=== PATIENT | male | born 1995 ===

== ENCOUNTER 2019-12-23 16:26 | Emergency (ER) | payer MEDICAID ==
[~2019-12-23] VITALS: Ht 167.6 cm; Wt 75.0 kg
[2019-12-23 16:30] VITALS: BP 131/69
[2019-12-23] MEDS ORDERED: LIDOCAINE-MPF 1%, 5ML ONE (16:47)
[2019-12-23] MEDS ORDERED: LIDOCAINE 1%, 10ML INFIL ONE (17:00)
--- NOTE | 2019-12-23 17:30 | NUR ---
Patient given discharge instructions and they have confirmed that they understand the instructions. Patient ambulatory with steady gait.
== END 2019-12-23 17:37 | disposition home or self-care (01) ==
LOC: ED 17:05
DX: S01.81XA Laceration without foreign body of other part of head, initial encounter (principal); S09.90XA Unspecified injury of head, initial encounter; F17.200 Nicotine dependence, unspecified, uncomplicated; X58.XXXA Exposure to other specified factors, initial encounter; Y93.89 Activity, other specified; Y92.488 Other paved roadways as the place of occurrence of the external cause; Y99.8 Other external cause status
CPT/HCPCS: 12011; 99283